=== PATIENT | male | born 1955 | race Caucasian/White ===

== ENCOUNTER 2019-11-09 11:15 | Inpatient (IN) ==
[2019-11-09 12:41] LABS: Basophils # 0.1 10*3/uL (0.0-0.2); Basophils % 0.4 % (0.0-0.8); Eosinophils # 0.1 10*3/uL (0.0-0.87); Eosinophils % 0.5 % (0.00-10.9); Hematocrit 45.7 VOL% (42.0-52.0); Hemoglobin 15.3 GM/DL (14.0-18.0); Immature Granulocytes % 0.6 %; Immature Granulocytes Absolute 0.08 #; Lymphocytes # 1.7 10*3/uL (1.4-4.0); Mean Corpuscular HGB Conc 33.5 GM/DL (32-36); Mean Platelet Volume 8.6 FL (9.6-12.0); Neutrophils % 78.5 % (38.7-73.9); Platelet Count 314 T/CUMM (130-400); Red Blood Count 4.86 MC/CUMM (3.8-5.5); Red Cell Distribution Width 13.3 % (9.3-17.3); White Blood Count 12.8 T/CUMM (4-12)
[2019-11-09 13:03] LABS: Alanine Aminotransferase 17 U/L (16-61); Albumin 3.6 G/DL (3.4-5.0); Alkaline Phosphatase 86 U/L (45-117); Aspartate Amino Transferase 21 U/L (0-37); Bilirubin,Total < 0.39 MG/DL (0.2-1.0); Blood Urea Nitrogen 16 MG/DL (7-18); Calcium 8.7 MG/DL (8.5-10.1); Estimated Glom Filtration Rate 87 ML/MIN; Glucose 146 MG/DL (74-106); Osmolality,Calculated 276.8 MOS/KG (273-304); Total Protein 7.6 G/DL (6.4-8.3)
[2019-11-09] MEDS ORDERED: SODIUM CHLORIDE 0.9% 500 ML IV STA (13:12)
[2019-11-09] MEDS ORDERED: KETOROLAC 30 MG/1 ML VIAL IV STA (13:12)
[2019-11-09] MEDS ORDERED: ACETAMINOPHEN 325 MG TABLET PO PRN ×2 (13:17→16:08)
[2019-11-09] MEDS ORDERED: ONDANSETRON 4 MG/2 ML VIAL IV PRN (13:17)
[2019-11-09] MEDS ORDERED: VANCOMYCIN INJ 1,000 MG in SODIUM CHLORIDE 0.9% 250 ML IV SCH (13:30)
[2019-11-09] MEDS ORDERED: SODIUM CHLORIDE 0.45% 1,000 ML IV SCH (13:30)
[2019-11-09] MEDS ORDERED: VANCOMYCIN 1,000 MG VIAL ONE (13:49)
[2019-11-09] MEDS ORDERED: NON-FORMULARY MEDICATION (Acetaminophen [Tylenol Arthritis Pain] 650 MG) PO SCH (16:15)
[2019-11-09] MEDS ORDERED: IBUPROFEN 600 MG TABLET PO ONE (19:04)
[2019-11-09] MEDS ORDERED: HEPARIN 5,000 UNIT/1 ML VIAL IV ONE (21:52)
[2019-11-09] MEDS ORDERED: HEPARIN DRIP 25,000 UNITS/500 ML PREMIX IV SCH (22:00)
[2019-11-09] MEDS: HYDROmorphone 2 MG/1 ML VIAL IV PRN (22:45)
[2019-11-09] MEDS: CIPROFLOXACIN INJ 400 MG in PREMIX 1 EACH IV SCH (23:03)
[2019-11-09] MEDS: SODIUM CHLORIDE 0.9% 1,000 ML IV SCH (23:09)
[2019-11-09 23:23] LABS: INR 0.9; Partial Thromboplastin Time 26.3 SECS (20.8-36.0)
[2019-11-10] MEDS: HEPARIN DRIP 25,000 UNITS/500 ML PREMIX IV SCH ×3 (00:23→23:20)
[2019-11-10] MEDS: HYDROmorphone 2 MG/1 ML VIAL IV PRN ×5 (00:46→17:52)
[2019-11-10] MEDS: VANCOMYCIN INJ 1,000 MG in SODIUM CHLORIDE 0.9% 250 ML IV SCH ×2 (02:06→13:56)
[2019-11-10 05:36] LABS: Basophils # 0.1 10*3/uL (0.0-0.2); Basophils % 0.6 % (0.0-0.8); Eosinophils # 0.2 10*3/uL (0.0-0.87); Eosinophils % 1.9 % (0.00-10.9); Hematocrit 37.5 VOL% (42.0-52.0); Hemoglobin 12.4 GM/DL (14.0-18.0); Immature Granulocytes % 0.6 %; Immature Granulocytes Absolute 0.05 #; Lymphocytes # 2.9 10*3/uL (1.4-4.0); Lymphocytes % 34.8 % (21.2-54.2); Mean Corpuscular HGB Conc 33.1 GM/DL (32-36); Mean Corpuscular Volume 94.2 FL (87-102); Mean Platelet Volume 9.2 FL (9.6-12.0); Monocytes % 8.1 % (1.7-12.7); Platelet Count 258 T/CUMM (130-400); Red Blood Count 3.98 MC/CUMM (3.8-5.5); Red Cell Distribution Width 13.4 % (9.3-17.3); White Blood Count 8.4 T/CUMM (4-12)
[2019-11-10] MEDS ORDERED: NON-FORMULARY MEDICATION (Diphenhydramine Hcl [Benadryl Allergy] 25 MG) PO SCH (09:00)
[2019-11-10] MEDS: SODIUM CHLORIDE 0.9% 1,000 ML IV SCH (10:33)
[2019-11-10] MEDS: CIPROFLOXACIN INJ 400 MG in PREMIX 1 EACH IV SCH ×2 (10:33→21:38)
[2019-11-10] MEDS: ONDANSETRON 4 MG/2 ML VIAL IV PRN ×2 (12:40→17:52)
[2019-11-11] MEDS: ONDANSETRON 4 MG/2 ML VIAL IV PRN ×2 (01:03→22:00)
[2019-11-11] MEDS: HYDROmorphone 2 MG/1 ML VIAL IV PRN ×2 (01:03→21:54)
[2019-11-11] MEDS: SODIUM CHLORIDE 0.9% 1,000 ML IV SCH ×2 (02:05→15:13)
[2019-11-11] MEDS: VANCOMYCIN INJ 1,000 MG in SODIUM CHLORIDE 0.9% 250 ML IV SCH ×2 (02:21→15:14)
[2019-11-11] MEDS ORDERED: fentaNYL 100 MCG/2 ML VIAL IV ONE (08:55)
[2019-11-11] MEDS ORDERED: DIAZEPAM 5 MG TABLET PO ONE (08:55)
[2019-11-11] MEDS ORDERED: MIDAZOLAM 2 MG/2 ML VIAL IV ONE (08:55)
[2019-11-11] MEDS ORDERED: fentaNYL 100 MCG/2 ML VIAL ONE (09:40)
[2019-11-11] MEDS ORDERED: MIDAZOLAM 2 MG/2 ML VIAL ONE (09:40)
[2019-11-11] MEDS ORDERED: HEPARIN/NACL 0.9% 2 UNITS/ML 2,000 ML IV ONE (09:45)
[2019-11-11] MEDS: CIPROFLOXACIN INJ 400 MG in PREMIX 1 EACH IV SCH ×2 (12:22→12:26)
[2019-11-11] MEDS: CLOPIDOGREL 75 MG TABLET PO SCH (17:37)
[2019-11-12] MEDS: CIPROFLOXACIN INJ 400 MG in PREMIX 1 EACH IV SCH (00:19)
[2019-11-12] MEDS: VANCOMYCIN INJ 1,000 MG in SODIUM CHLORIDE 0.9% 250 ML IV SCH (02:54)
[2019-11-12] MEDS: CLOPIDOGREL 75 MG TABLET PO SCH (08:47)
[2019-11-12] MEDS: SODIUM CHLORIDE 0.9% 1,000 ML IV SCH (08:50)
[2019-11-12] MEDS ORDERED: VANCOMYCIN INJ 1,250 MG in SODIUM CHLORIDE 0.9% 250 ML IV SCH (14:00)
[2019-11-12] MEDS: CIPROFLOXACIN 500 MG TABLET PO SCH (20:32)
[2019-11-13] MEDS: BISACODYL 5 MG TABLET PO PRN (09:17)
[2019-11-13] MEDS: CLOPIDOGREL 75 MG TABLET PO SCH (09:17)
[2019-11-13] MEDS: ASPIRIN EC 81 MG TABLET PO SCH (09:17)
[2019-11-13] MEDS: CIPROFLOXACIN 500 MG TABLET PO SCH ×2 (09:17→21:23)
[2019-11-14] MEDS: ASPIRIN EC 81 MG TABLET PO SCH (09:19)
[2019-11-14] MEDS: BISACODYL 5 MG TABLET PO PRN (09:19)
[2019-11-14] MEDS: CLOPIDOGREL 75 MG TABLET PO SCH (09:20)
[2019-11-14] MEDS: CIPROFLOXACIN 500 MG TABLET PO SCH ×2 (09:20→20:36)
[2019-11-15] MEDS ORDERED: VANCOMYCIN INJ 500 MG in SODIUM CHLORIDE 0.9% 100 ML IV ONE (06:00)
[2019-11-15 08:41] LABS: Basophils % 0.4 % (0.0-0.8); Eosinophils # 0.1 10*3/uL (0.0-0.87); Eosinophils % 1.1 % (0.00-10.9); Hematocrit 41.2 VOL% (42.0-52.0); Hemoglobin 14.3 GM/DL (14.0-18.0); Immature Granulocytes % 0.6 %; Immature Granulocytes Absolute 0.06 #; Lymphocytes # 1.3 10*3/uL (1.4-4.0); Mean Corpuscular HGB Conc 34.7 GM/DL (32-36); Mean Corpuscular Volume 92.4 FL (87-102); Monocytes % 9.8 % (1.7-12.7); Neutrophils % 76.1 % (38.7-73.9); Platelet Count 296 T/CUMM (130-400); Red Blood Count 4.46 MC/CUMM (3.8-5.5); Red Cell Distribution Width 13.2 % (9.3-17.3); White Blood Count 10.4 T/CUMM (4-12)
[2019-11-15 08:50] LABS: INR 0.9; Partial Thromboplastin Time 26.2 SECS (20.8-36.0)
[2019-11-15 08:57] LABS: Calcium 8.7 MG/DL (8.5-10.1); Osmolality,Calculated 276.7 MOS/KG (273-304)
[2019-11-15] MEDS: CIPROFLOXACIN 500 MG TABLET PO SCH ×2 (09:17→21:26)
[2019-11-15] MEDS: ASPIRIN EC 81 MG TABLET PO SCH (09:17)
[2019-11-15] MEDS: CLOPIDOGREL 75 MG TABLET PO SCH (09:17)
[2019-11-15] MEDS ORDERED: BUPIVACAINE 0.5% 50 ML VIAL ONE (10:55)
[2019-11-15] MEDS ORDERED: LACTATED RINGERS 1,000 ML IV SCH (11:00)
[2019-11-15] MEDS ORDERED: NEOMYCIN/POLYMYXIN/BACITRACIN OINT 28.4 GM TUBE TOP ONE (11:30)
[2019-11-15] MEDS ORDERED: ONDANSETRON 4 MG/2 ML VIAL IV PRN (11:54)
[2019-11-15] MEDS ORDERED: HYDROmorphone 2 MG/1 ML VIAL ONE (12:13)
[2019-11-15] MEDS ORDERED: ONDANSETRON 4 MG/2 ML VIAL ONE (12:13)
[2019-11-15] MEDS: HYDROmorphone 2 MG/1 ML VIAL IV PRN ×4 (12:20→23:42)
[2019-11-15] MEDS ORDERED: LIDOCAINE 2% 5 ML VIAL ONE (12:26)
[2019-11-15] MEDS ORDERED: SEVOFLURANE 1 UNIT/15 MINUTE INH ONE (12:26)
[2019-11-15] MEDS ORDERED: propofoL 200 MG/20 ML VIAL IV ONE (12:26)
[2019-11-15] MEDS ORDERED: fentaNYL 100 MCG/2 ML VIAL ONE (12:27)
[2019-11-15] MEDS ORDERED: MIDAZOLAM 2 MG/2 ML VIAL ONE (12:27)
[2019-11-15] MEDS ORDERED: PHENYLEPHRINE 1 MG/10 ML SYRINGE IV ONE (12:27)
[2019-11-15] MEDS: ONDANSETRON 4 MG/2 ML VIAL IV PRN (19:23)
[2019-11-15] MEDS: cilostazoL 50 MG TABLET PO SCH (21:26)
[2019-11-16] MEDS: ONDANSETRON 4 MG/2 ML VIAL IV PRN (00:25)
[2019-11-16] MEDS ORDERED: ONDANSETRON 4 MG/2 ML VIAL IV PRN (07:29)
[2019-11-16] MEDS: ASPIRIN EC 81 MG TABLET PO SCH (08:12)
[2019-11-16] MEDS: cilostazoL 50 MG TABLET PO SCH (08:12)
[2019-11-16] MEDS: CIPROFLOXACIN 500 MG TABLET PO SCH (08:13)
[2019-11-16] MEDS: HYDROmorphone 2 MG/1 ML VIAL IV PRN (08:13)
[2019-11-16] MEDS: CLOPIDOGREL 75 MG TABLET PO SCH (08:13)
[2019-11-16] MEDS: BISACODYL 5 MG TABLET PO PRN (10:35)
[2019-11-16 11:20] VITALS: BP 100/55
== END 2019-11-16 14:39 | disposition home or self-care (01) | DRG 253 ==
LOC: N.ED 11:15 → N.5E 13:15 → N.3E 11-11 10:55
PROVIDERS: ADMIT Surgery; ATTEND Surgery

== ENCOUNTER 2020-02-16 05:58 | Inpatient (IN) ==
[2020-02-16] MEDS ORDERED: VANCOMYCIN INJ 1,000 MG in SODIUM CHLORIDE 0.9% 250 ML IV ONE (06:00)
[2020-02-16 06:32] LABS: Basophils % 0.4 % (0.0-0.8); Eosinophils # 0.2 10*3/uL (0.0-0.87); Eosinophils % 2.2 % (0.00-10.9); Hematocrit 38.8 VOL% (42.0-52.0); Hemoglobin 12.3 GM/DL (14.0-18.0); Immature Granulocytes % 0.6 %; Immature Granulocytes Absolute 0.05 #; Lymphocytes # 1.6 10*3/uL (1.4-4.0); Lymphocytes % 17.5 % (21.2-54.2); Mean Corpuscular HGB Conc 31.7 GM/DL (32-36); Mean Corpuscular Volume 92.8 FL (87-102); Mean Platelet Volume 8.3 FL (9.6-12.0); Monocytes % 7.7 % (1.7-12.7); Neutrophils % 71.6 % (38.7-73.9); Platelet Count 334 T/CUMM (130-400); Red Blood Count 4.18 MC/CUMM (3.8-5.5); Red Cell Distribution Width 13.3 % (9.3-17.3); White Blood Count 9.1 T/CUMM (4-12)
[2020-02-16 06:52] LABS: Albumin 3.1 G/DL (3.4-5.0); Bilirubin,Total 0.6 MG/DL (0.2-1.0); Calcium 8.7 MG/DL (8.5-10.1); Total Protein 7.2 G/DL (6.4-8.3)
[2020-02-16] MEDS: LACTATED RINGERS 1,000 ML IV SCH ×3 (07:00→19:26)
[2020-02-16] MEDS ORDERED: VANCOMYCIN 1,000 MG VIAL ONE (07:05)
[2020-02-16 07:28] LABS: Anisocytosis 1+; Band Neutrophils 2 % (0-10); Eosinophils 4 % (0-10); Lymphocytes 20 % (20-55); Macrocytosis 1+; Metamyelocytes 1 %; Platelet Estimate Normal; Segmented Neutrophils 69 % (50-85); Total Cells Counted 100
[2020-02-16] MEDS ORDERED: LIDOCAINE 1% 20 ML VIAL ONE (07:37)
[2020-02-16] MEDS ORDERED: BUPIVACAINE MPF 0.25% 30 ML VIAL ONE (07:37)
[2020-02-16] MEDS ORDERED: HEPARIN 5,000 UNIT/1 ML VIAL ONE (07:37)
[2020-02-16] MEDS ORDERED: VANCOMYCIN 500 MG VIAL ONE (07:37)
[2020-02-16] MEDS ORDERED: TISSUE ADHESIVE 1 EACH APPLICATOR TOP ONE (10:56)
[2020-02-16] MEDS ORDERED: ONDANSETRON 4 MG/2 ML VIAL IV PRN ×2 (11:50→12:11)
[2020-02-16] MEDS ORDERED: HYDROmorphone 2 MG/1 ML VIAL IV PRN (11:50)
[2020-02-16] MEDS ORDERED: ONDANSETRON 4 MG/2 ML VIAL ONE (11:52)
[2020-02-16] MEDS ORDERED: HYDROmorphone 2 MG/1 ML VIAL ONE (11:52)
[2020-02-16] MEDS: HYDROmorphone 2 MG/1 ML VIAL IV PRN ×4 (11:55→12:14)
[2020-02-16] MEDS ORDERED: propofoL 200 MG/20 ML VIAL IV ONE (11:57)
[2020-02-16] MEDS ORDERED: DESFLURANE 1 UNIT/15 MINUTE INH ONE (11:57)
[2020-02-16] MEDS ORDERED: HEPARIN 10,000 UNIT/10 ML VIAL ONE (11:57)
[2020-02-16] MEDS ORDERED: LIDOCAINE 2% 5 ML VIAL ONE (11:57)
[2020-02-16] MEDS ORDERED: PROTAMINE SULFATE 50 MG/5 ML VIAL IV ONE (11:58)
[2020-02-16] MEDS ORDERED: GLYCOPYRROLATE 0.4 MG/2 ML VIAL ONE (11:58)
[2020-02-16] MEDS ORDERED: ROCURONIUM 100 MG/10 ML VIAL IV ONE (11:58)
[2020-02-16] MEDS ORDERED: fentaNYL 100 MCG/2 ML VIAL ONE (11:58)
[2020-02-16] MEDS ORDERED: MIDAZOLAM 2 MG/2 ML VIAL ONE (11:58)
[2020-02-16] MEDS ORDERED: PHENYLEPHRINE 1 MG/10 ML SYRINGE IV ONE (11:58)
[2020-02-16] MEDS ORDERED: NEOSTIGMINE 10 MG/10 ML VIAL ONE (11:58)
[2020-02-16] MEDS ORDERED: SUCCINYLCHOLINE 200 MG/10 ML VIAL ONE (11:58)
[2020-02-16] MEDS ORDERED: KETOROLAC 30 MG/1 ML VIAL ONE (11:58)
[2020-02-16] MEDS ORDERED: PHENYLEPHRINE DRIP 20 MG/250 ML PREMIX IV ONE (11:59)
[2020-02-16] MEDS ORDERED: PROMETHAZINE 25 MG/1 ML VIAL ONE (12:23)
[2020-02-16] MEDS ORDERED: MEPERIDINE 25 MG/1 ML VIAL IV ONE (12:23)
[2020-02-16] MEDS ORDERED: MEPERIDINE 25 MG/1 ML VIAL ONE (12:23)
[2020-02-16] MEDS ORDERED: PROMETHAZINE INJ 25 MG in SODIUM CHLORIDE 0.9% 50 ML IV ONE (12:24)
[2020-02-16] MEDS: GABAPENTIN 300 MG CAPSULE PO SCH ×2 (15:19→21:12)
[2020-02-16] MEDS: KETOROLAC 10 MG TABLET PO SCH ×2 (15:19→18:39)
[2020-02-16] MEDS: SULFAMETHOX/TRIMETHOPRIM 800-160 MG TABLET PO SCH (21:12)
[2020-02-16] MEDS: cilostazoL 50 MG TABLET PO SCH (21:12)
[2020-02-16] MEDS: ACETAMINOPHEN 325 MG TABLET PO SCH (21:12)
[2020-02-17] MEDS: KETOROLAC 10 MG TABLET PO SCH ×3 (00:45→11:23)
[2020-02-17] MEDS: LACTATED RINGERS 1,000 ML IV SCH ×2 (02:32→09:43)
[2020-02-17 05:36] LABS: Hematocrit 26.2 VOL% (42.0-52.0); Hemoglobin 8.6 GM/DL (14.0-18.0)
[2020-02-17 06:10] LABS: Osmolality,Calculated 275.8 MOS/KG (273-304)
[2020-02-17] MEDS: GABAPENTIN 300 MG CAPSULE PO SCH (08:48)
[2020-02-17] MEDS: cilostazoL 50 MG TABLET PO SCH (08:48)
[2020-02-17] MEDS: SULFAMETHOX/TRIMETHOPRIM 800-160 MG TABLET PO SCH (08:49)
[2020-02-17] MEDS ORDERED: CLOPIDOGREL 75 MG TABLET PO SCH ×2 (09:00)
[2020-02-17] MEDS ORDERED: ASPIRIN CHEW 81 MG TABLET PO SCH ×2 (09:00)
[2020-02-17] MEDS: ACETAMINOPHEN 325 MG TABLET PO SCH (09:43)
[2020-02-17] MEDS ORDERED: SODIUM HYPOCHLORITE 0.25% IRRIG 473 ML BOTTLE TOP SCH (11:30)
[2020-02-17 11:33] VITALS: BP 123/51
== END 2020-02-17 13:31 | disposition home health service (06) | DRG 254 ==
LOC: N.SDSINP 05:58 → N.3E 13:24
PROVIDERS: ADMIT Surgery; ATTEND Surgery